=== PATIENT | male | born 1965 | race Caucasian/White ===

== ENCOUNTER 2016-06-28 17:37 | Emergency (ER) | payer BC ==
[~2016-06-28] VITALS: Ht 188 cm; Wt 95.6 kg
[~2016-06-28 17:37] MED LIST: ALBU1AER9 INH; CELE50CA PO; CYCL10TA6; EPP3/2 IM; FLUO20CA35 PO; HYDR-5688 PO; MONT1TAB3 PO; OXYC-88 PO; ZYR/5 PO
[2016-06-28 17:42] VITALS: TEMP 36.9; Ht 188 cm; Wt 95.6 kg
[2016-06-28] MEDS ORDERED: METHYLPREDNISOLONE 125 MG VIAL IV STA (17:42)
[2016-06-28] MEDS ORDERED: SODIUM CHLORIDE 0.9% 1000ML 1,000 ML IV STA (17:42)
[2016-06-28] MEDS ORDERED: FAMOTIDINE IV INJ 20 MG in DEXTROSE 5% 100ML 100 ML IV STA (17:42)
[2016-06-28] MEDS ORDERED: DiphenhydrAMINE HCL 50 MG/ML VIAL IV STA (17:42)
--- NOTE | 2016-06-28 17:48 | EMERGENCY ROOM VISIT NOTE ---
History Report prepared by González: Marielena Garcia Under the Supervision of: Dr. Angy Amezcua M.D. First contact with patient: 17:42 Chief Complaint: ALLERGIC REACTION Stated Complaint: FOOD ALLERGY Nursing Triage Summary: Pt ate hot wings around 1630 allergy to barley seasame took 2 benadryl 30mins [employer] hx anaphylaxis History of Present Illness The patient is a 50 year old male who presents to the Emergency Room with complaints of a constant allergic reaction beginning 1 hour ago. The patient reports that he has an allergy to barley and sesame and ate hot wings before he started his reaction. He states that he took 2 Benadryl [employer]. He notes associated itching. He denies any shortness of breath. Source of History: patient Onset: 1 hour ago Position: other (global) Quality: other (allergic reaction) Timing: constant Modifying Factors (Worsening): other (hot wings) Associated Symptoms: No SOB Note: The patient notes associated itching. Review of Systems See HPI for pertinent positives & negatives. A total of 10 systems reviewed and were otherwise negative. Past Medical & Surgical Medical Problems: (1) Herniation of cervical intervertebral disc with radiculopathy (2) Hypertension (3) Sesame allergy Family History Heart disease Social History Smoking Status: Never Smoker Alcohol Use: none Drug Use: none Housing Status: lives with family Occupation Status: employed Current/Historical Medications Scheduled Celecoxib (Celebrex), 50 MG PO QPM Cetirizine Hcl (Zyrtec), 5 MG PO QPM Fluoxetine (Prozac), 20 MG PO QPM Montelukast Sodium (Singulair), 10 MG PO QPM Prednisone (Prednisone), 40 MG PO DAILY Scheduled PRN Epinephrine (Epipen), 0.3 MG IM UD PRN for ALLERGIC REACTION Miscellaneous Medications Albuterol Sulfate (Proair Hfa), INH Allergies Coded Allergies: Barley (Verified Allergy, Severe, ANAPHYLAXIS, 06/28/16) Able to eat if processed but not whole grain Sesame Seed (Verified Allergy, Severe, ANAPHYLAXIS, 06/28/16) Aspirin (Verified Allergy, Unknown, UNKNOWN, 06/28/16) Uncoded Allergies: WAX (Allergy, Intermediate, rash/ hives around lips when dental wax used, ) Physical Exam Vital Signs Date Time Temp Pulse Resp B/P Pulse Ox O2 Delivery O2 Flow Rate FiO2 06/28/16 19:53 77 18 141/89 93 06/28/16 19:38 75 13 94 06/28/16 19:28 139/95 06/28/16 19:23 69 14 97 06/28/16 19:08 70 21 95 06/28/16 18:58 137/90 06/28/16 18:33 71 13 96 06/28/16 18:28 145/90 06/28/16 18:23 145/94 06/28/16 18:07 73 17 99 06/28/16 18:06 157/102 06/28/16 17:45 96 06/28/16 17:42 36.9 98 20 164/99 90 Room Air 06/28/16 17:39 164/99 Physical Exam Vital signs reviewed. General: Well-appearing, in no significant distress. HEENT: No scleral icterus, PERRLA, neck supple. Atraumatic. Cardiovascular: Regular rate and rhythm, no extra sounds. Pulmonary: Clear to auscultation bilaterally, normal work of breathing. Abdomen: Soft, nontender, nondistended, positive bowel sounds. Musculoskeletal: Atraumatic, no peripheral edema. Neurologic: Patient awake alert and oriented x 3, full strength in all 4 extremities. Cranial nerves 2 through 12 grossly intact. Skin: Warm, dry, diffuse urticaria head, chest, back, upper extremities. Mild perioral edema. Medical Decision & Procedures Medications Administered Medications (Trade) Dose Ordered Sig/All Route Start Time Stop Time Status Last Admin Dose Admin Diphenhydramine HCl (Benadryl Inj) 25 mg NOW STAT IV 06/28/16 17:42 06/28/16 17:44 DC 06/28/16 17:50 25 MG Methylprednisolone Sodium Succinate 125 mg 125 mg NOW STAT IV 06/28/16 17:42 06/28/16 17:44 DC 06/28/16 17:50 125 MG Famotidine 20 mg/ Dextrose 102 ml @ 200 mls/hr NOW STAT IV 06/28/16 17:42 06/28/16 18:12 DC 06/28/16 17:55 200 MLS/HR Sodium Chloride (Nss 1000ml) 1,000 ml @ 999 mls/hr Q1H1M STAT IV 06/28/16 17:42 06/28/16 18:42 DC 06/28/16 17:51 999 MLS/HR ED Course 1742: Past medical records reviewed. The patient was evaluated in room A1. A complete history and physical examination was performed. 1741: Sodium Chloride 1000 ml @ 999 mls/hr IV, Famotidine 20mg/Dextrose 102ml @ 200mls/hr, Solu-Medrol IV 125mg IV, Benadryl Inj 25mg IV. 1925: I reevaluated the patient and discussed his results. 1939: Upon reevaluation, the patient appeared to have improvement of his symptoms. I discussed findings with the patient. The patient verbalized agreement of the treatment plan. He was discharged home. Medical Decision Differential diagnosis: Etiologies such as allergic reaction, anaphylaxis, urticaria, Weldon-Aashish syndrome, toxic epidermal necrolysis, erythema multiforme, cellulitis, as well as others were entertained. This patient was evaluated and appeared to be in some discomfort. IV access was obtained and laboratory work was drawn. The patient was placed on the playground monitor. His given IV Benadryl 25 mg, as he had taken 50 mg prior to arrival, IV Solu-Medrol 125 mg and IV Pepcid 20 mg. Patient was hydrated with normal saline solution. He did have significant resolution of his symptoms. Patient has an EpiPen with him and is familiar with its use. He was given prednisone 40 mg daily for the next 4 days by prescription. He'll follow-up with his physician for reevaluation if symptoms persist and return to the ER for worsening of symptoms or any medical concerns. Impression Primary Impression: Allergic reaction Scribe Attestation The scribe's documentation has been prepared under my direction and personally reviewed by me in its entirety. I confirm that the note above accurately reflects all work, treatment, procedures, and medical decision making performed by me. Departure Information Dispostion Home / Self-Care Prescriptions Prednisone (Prednisone) 20 Mg Tab 40 MG PO DAILY, #8 TAB Prov: Angy Amezcua M.D. 06/28/16 Referrals No Doctor, Assigned (PCP) Forms HOME CARE DOCUMENTATION FORM, IMPORTANT VISIT INFORMATION Patient Instructions A Signature Page, My [facility] Additional Instructions Diagnosis: Allergic reaction Benadryl 50 mg every 6 hours as needed for allergic symptoms. Prednisone 40 mg daily for the next 4 days, start tomorrow. EpiPen as needed for severe allergic symptoms. Follow-up with your physician this week if symptoms recur. Return to the ER immediately for worsening of symptoms or any medical concerns.
[2016-06-28] MEDS ORDERED: PRED20TA PO (19:40)
[2016-06-28 19:53] VITALS: BP 141/89; PULSE 77; O2SAT 93
== END 2016-06-28 19:54 | disposition home or self-care (01) ==
LOC: C.EDB 17:38 → C.ED 19:54
DX: T78.40XA Allergy, unspecified, initial encounter (principal); X58.XXXA Exposure to other specified factors, initial encounter; I10 Essential (primary) hypertension